=== PATIENT | male | born 1935 | race Two or more races ===

== ENCOUNTER 2020-07-02 15:14 | Inpatient (IN) | payer OTHER ==
[~2020-07-02] VITALS: Ht 175.3 cm; Wt 80.3 kg
[2020-07-02] MEDS ORDERED: ZYLOPRIM100 M1 PO (15:41)
[2020-07-02] MEDS ORDERED: BUMETANIDE1 MG PO (15:41)
[2020-07-02] MEDS ORDERED: ATORVASTATIN CA20 MG PO (15:41)
[2020-07-02] MEDS ORDERED: ELIQUIS2.5 MG PO (15:42)
[2020-07-02] MEDS ORDERED: ISOSORBIDE DINI30 MG PO (15:42)
[2020-07-02] MEDS ORDERED: CARVEDILOL6.25 M1 (15:44)
--- NOTE | 2020-07-02 15:44 | NUR ---
SE RECIBE PACIEMTE EN AMBULANCIA REFIEREN PARAMEDICO QUE PRESENTA DIFICULTAD RESPIRATORIA. PTE NO RESPONDE A PREGUNTAS SOLO REALIZA RUIDOS, PTE [place] CONTINUO OXIGENO. SE ESTIMAN S/V PRESENTA SATURACION DE OXIGENO POR OXIMETRIA DE PULSO 83%, TEMPERATURA 101.8, P[place] 138. SE UBICA EN UNIDAD CRITITA SE REALIZA EKG SE PRESENTA A
--- NOTE | 2020-07-02 16:35 | NUR ---
PT ALERTA Y ORIENTADO X3 ESFERAS SE LE ORIENTA SOBRE [place] Y REFIERE ENTEDER. SE GARDEN[place] MUESTRAS DE [place] Y VENOPUNCION CON TECNICAS ASEPTICAS. SE ADMINISTRAN MEDICAMENTOS ORDENADOS. PT [place]. SE MANTIENE BAJO OBSERVACION POR CAMBIOS EN NADJA. EN UNIDAD DE CRITICO CUBICULO 3, CONECTADO A MONITOR CARDIACO Y SATUROMETRO DE PULSO.
[2020-07-03] MEDS ORDERED: FOLIC ACID1 MG (08:54)
[2020-07-03] MEDS ORDERED: AMMONIUM LACTA385 GM (08:55)
[2020-07-03] MEDS ORDERED: TRELEGY ELLIPT1 EACH (08:55)
[2020-07-03] MEDS ORDERED: ISOSORBIDE MONO30 M2 (08:55)
[2020-07-03] MEDS ORDERED: LEVOTHYROXINE25 MC1 (08:55)
[2020-07-03] MEDS ORDERED: METOPROLOL SUCC25 MG (08:55)
[2020-07-03] MEDS ORDERED: GABAPENTIN300 M2 (08:55)
== END 2020-07-06 20:00 | disposition expired | DRG 208 ==
LOC: ER 15:14 → ICU-2 20:32 → ICU 20:32 → ICU-2 07-03 16:17 → SEC-K 07-03 18:16 → MEDI 07-03 18:27 → SEC-K 07-03 18:33 → ICU 07-04 19:39
PROVIDERS: ADMIT Internal Medicine; ATTEND Internal Medicine
PROC: BW28ZZZ Computerized Tomography (CT Scan) of Head (ICD-10-PCS; 2020-07-02)
PROC: CB2YYZZ Tomographic (Tomo) Nuclear Medicine Imaging of Respiratory System using Other Radionuclide (ICD-10-PCS; 2020-07-02)
PROC: 3E0F7SF Introduction of Other Gas into Respiratory Tract, Via Natural or Artificial Opening (ICD-10-PCS; 2020-07-02)
PROC: B24BZZZ Ultrasonography of Heart with Aorta (ICD-10-PCS; 2020-07-03)
PROC: 8E0ZXY6 Isolation (ICD-10-PCS; 2020-07-03)
PROC: 5A09357 Assistance with Respiratory Ventilation, Less than 24 Consecutive Hours, Continuous Positive Airway Pressure (ICD-10-PCS; 2020-07-03)
PROC: 5A1945Z Respiratory Ventilation, 24-96 Consecutive Hours (ICD-10-PCS; principal; 2020-07-04)
PROC: 0BH17EZ Insertion of Endotracheal Airway into Trachea, Via Natural or Artificial Opening (ICD-10-PCS; 2020-07-04)
PROC: 4A033R1 Measurement of Arterial Saturation, Peripheral, Percutaneous Approach (ICD-10-PCS; 2020-07-04)
PROC: 02HV33Z Insertion of Infusion Device into Superior Vena Cava, Percutaneous Approach (ICD-10-PCS; 2020-07-06)
DX: J44.1 Chronic obstructive pulmonary disease with (acute) exacerbation (principal); R18.8 Other ascites; N17.8 Other acute kidney failure; I48.20 Chronic atrial fibrillation, unspecified; G93.1 Anoxic brain damage, not elsewhere classified; R09.02 Hypoxemia; Z95.1 Presence of aortocoronary bypass graft; J22 Unspecified acute lower respiratory infection; B94.8 Sequelae of other specified infectious and parasitic diseases; I50.9 Heart failure, unspecified; T50.B95A Adverse effect of other viral vaccines, initial encounter; E03.8 Other specified hypothyroidism; Z79.01 Long term (current) use of anticoagulants; B96.0 Mycoplasma pneumoniae [M. pneumoniae] as the cause of diseases classified elsewhere; I46.2 Cardiac arrest due to underlying cardiac condition; Z20.822 Contact with and (suspected) exposure to COVID-19